=== PATIENT | male | born 1955 | race Caucasian/White ===

== ENCOUNTER → 2022-11-21 13:46 | Outpatient (CLI) | payer MEDICARE, SELFPAY ==
--- NOTE | ~2022-11-21 | CT_ITS ---
CT of the Abdomen and Pelvis: Indication: Infection, abscess Technique: 2.5 mm axial scans were obtained through the abdomen and pelvis following intravenous adm inistration of 100 cc of Omnipaque 350. Dose reduction technique was used on this scan by utilizing a utomated exposure control and iterative reconstruction technique. The dose-length product (DLP) was 8 54.06 mGy-cm. Findings: Scans through the lung bases are unremarkable. The liver, spleen, pancreas, gallbladder, adrenals and kidneys are within normal limits. No evidence of aortic aneurysm. No lymphadenopathy. 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 No bowel obstruct ion or bowel wall thickening. Probable small wound at the anterior midline just above the umbilicus. Possible very small abscess measuring 8 mm in the anterior abdominal wall/anterior subcutaneous fat ( axial image 73).. Images through the pelvis were performed. Urinary bladder unremarkable. Prostate gland is enlarged. N o ascites. Impression: Probable small wound at the anterior midline, with suspected 8 mm abscess in the anterior subcutaneou s soft tissue/anterior abdominal wall. 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 Correlate with surgical history. Reviewed, dictated and finalized at [facility]. Impression: Probable small wound at the anterior midline, with suspected 8 mm abscess in th e anterior subcutaneous soft tissue/anterior abdominal wall. 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 Correlate with s urgical history.
[2022-11-21 14:13] LABS: Estimated Glomerular Filt Rate > 60
== END ==
DX: L08.9 Local infection of the skin and subcutaneous tissue, unspecified (principal)
CPT/HCPCS: 74177; Q9967